=== PATIENT | male | born 1940 | race Caucasian/White ===

== ENCOUNTER 2020-07-17 10:47 | Inpatient (IN) | payer OTHER ==
[~2020-07-17] VITALS: Ht 170.2 cm; Wt 104.0 kg
[2020-07-17 11:13] LABS: BASOPHILS % (AUTO) 0.3 % (0.0-5.0); EOSINOPHILS % (AUTO) 0.1 % (0.0-8.0); LYMPHOCYTES % (AUTO) 2.9 % (21.0-51.0); MEAN CORPUSCULAR VOLUME 90.9 fL (79-99); MONOCYTES % (AUTO) 12.2 % (3.0-13.0); NEUTROPHILS % (AUTO) 82.2 % (40.0-77.0); PLATELET COUNT (AUTO) 181 K/uL (130-400); RED BLOOD CELL COUNT(AUTO) 4.62 MIL/uL (4.50-6.20); RED CELL DISTRIBUTION WIDTH 12.8 % (11.0-15.5)
[2020-07-17 11:34] LABS: INR 1.33 (0.85-1.15); PROTHROMBIN TIME 14.1 SEC (9.6-11.6)
[2020-07-17 11:36] LABS: PARTIAL THROMBOPLASTIN TIME 34.5 SEC (26.3-35.5)
[2020-07-17 12:23] LABS: ALBUMIN 2.4 g/dL (3.5-5.0); BILIRUBIN,TOTAL 3.3 mg/dL (0.2-1.0); CREATININE 4.6 mg/dL (0.5-1.5); POTASSIUM 4.8 mmol/L (3.5-5.1); TOTAL PROTEIN, SERUM 7.1 g/dL (6.0-8.3)
[2020-07-17] MEDS ORDERED: MEROPENEM 1 GM VIAL ONE (14:23)
[2020-07-17] MEDS ORDERED: 0.9%NACL 100ML 100 ML IV ONE (14:24)
[2020-07-17] MEDS ORDERED: METRONIDAZOLE 500MG/100ML BAG 100 ML ONE (14:32)
[2020-07-17] MEDS ORDERED: NALOXONE HCL 0.4 MG/1 ML ML IVP ONE (14:33)
[2020-07-17] MEDS: ZOSYN 3.375GM+NS 50ML 50 ML IV SCH (18:00)
[2020-07-17] MEDS ORDERED: MORPHINE 2 MG SYG IV PRN (18:15)
[2020-07-17] MEDS: 0.9%NACL 1000ML 1,000 ML IV SCH (19:30)
[2020-07-17] MEDS ORDERED: METOPROLOL TARTRATE 25 MG TAB ONE (20:52)
[2020-07-17] MEDS ORDERED: ZOSYN 3.375GM+NS 50ML 50 ML IV ONE (20:52)
[2020-07-17] MEDS ORDERED: FAMOTIDINE 20MG VIAL IV ONE (20:53)
[2020-07-17] MEDS: METOPROLOL TARTRATE 25 MG TAB PO SCH (21:00)
[2020-07-17] MEDS: FAMOTIDINE 20MG VIAL IV SCH (21:00)
[2020-07-17 21:11] LABS: CREATININE 4.6 mg/dL (0.5-1.5); POTASSIUM 4.5 mmol/L (3.5-5.1)
[2020-07-17 22:49] VITALS: BP 114/59
[2020-07-17] MEDS ORDERED: APIX2.5T PO (23:07)
[2020-07-17] MEDS ORDERED: FURO40TA5 PO (23:07)
[2020-07-17] MEDS ORDERED: TIOT18CA3 IH (23:07)
[2020-07-17] MEDS ORDERED: ATOR-2 PO (23:07)
[2020-07-17] MEDS ORDERED: LEVO50CA4 PO (23:07)
[2020-07-17] MEDS ORDERED: ALLO100T PO (23:07)
[2020-07-17] MEDS ORDERED: NPH,100V11 SQ ×2 (23:07)
[2020-07-17] MEDS ORDERED: GLIP10TA9 PO (23:07)
[2020-07-17] MEDS ORDERED: TAMS-1 PO (23:07)
[2020-07-18] MEDS: HYDROMORPHONE 0.5 MG SYG (0.5MG/0.5ML) IVP PRN ×3 (02:21→18:09)
[2020-07-18] MEDS: ONDANSETRON 4MG INJ IV PRN (02:21)
[2020-07-18 04:00] VITALS: BP 109/60
[2020-07-18 05:00] LABS: BASOPHILS % (AUTO) 0.3 % (0.0-5.0); EOSINOPHILS % (AUTO) 1.1 % (0.0-8.0); MEAN CORPUSCULAR HEMOGLOBIN 29.7 pg (27.0-33.0); MEAN CORPUSCULAR HGB CONC 32.3 g/dL (32.0-36.0); MONOCYTES % (AUTO) 10.6 % (3.0-13.0); NEUTROPHILS % (AUTO) 83.5 % (40.0-77.0); PLATELET COUNT (AUTO) 194 K/uL (130-400); RED BLOOD CELL COUNT(AUTO) 4.35 MIL/uL (4.50-6.20); WHITE BLOOD COUNT (AUTO) 19.4 K/uL (4.8-10.8)
[2020-07-18] MEDS: ZOSYN 3.375GM+NS 50ML 50 ML IV SCH ×2 (05:40→18:09)
[2020-07-18] MEDS: 0.9%NACL 1000ML 1,000 ML IV SCH ×2 (05:40→18:11)
[2020-07-18] MEDS: INSULIN HUMULIN R 100 UNIT/ML 3ML SQ SCH ×4 (05:57→18:00)
[2020-07-18 07:57] VITALS: BP 109/58
[2020-07-18] MEDS: METOPROLOL TARTRATE 25 MG TAB PO SCH ×3 (08:19→21:51)
[2020-07-18 12:16] VITALS: BP 97/78
[2020-07-18 17:55] VITALS: BP 133/62
[2020-07-18 20:00] VITALS: BP 156/72
[2020-07-18] MEDS: FAMOTIDINE 20MG VIAL IV SCH (21:50)
[2020-07-19] VITALS (7 sets, daily range): BP systolic 105–121; BP diastolic 55–72
[2020-07-19] MEDS: INSULIN HUMULIN R 100 UNIT/ML 3ML SQ SCH ×4 (00:32→21:49)
[2020-07-19] MEDS: HYDROMORPHONE 0.5 MG SYG (0.5MG/0.5ML) IVP PRN ×5 (00:33→22:03)
[2020-07-19] MEDS: ACETAMINOPHEN 325 MG TAB PO PRN ×2 (01:07→22:03)
[2020-07-19] MEDS: ZOSYN 3.375GM+NS 50ML 50 ML IV SCH ×3 (04:41→21:50)
[2020-07-19 05:22] LABS: BASOPHILS % (AUTO) 0.3 % (0.0-5.0); EOSINOPHILS % (AUTO) 0.1 % (0.0-8.0); HEMATOCRIT 38.7 % (42-54); LYMPHOCYTES % (AUTO) 3.8 % (21.0-51.0); MEAN CORPUSCULAR HEMOGLOBIN 30.9 pg (27.0-33.0); MEAN CORPUSCULAR HGB CONC 33.9 g/dL (32.0-36.0); MEAN CORPUSCULAR VOLUME 91.3 fL (79-99); MONOCYTES % (AUTO) 13.6 % (3.0-13.0); NEUTROPHILS % (AUTO) 80.3 % (40.0-77.0); PLATELET COUNT (AUTO) 209 K/uL (130-400); RED BLOOD CELL COUNT(AUTO) 4.24 MIL/uL (4.50-6.20); RED CELL DISTRIBUTION WIDTH 13.3 % (11.0-15.5)
[2020-07-19 05:46] LABS: BILIRUBIN,TOTAL 1.4 mg/dL (0.2-1.0); CREATININE 5.8 mg/dL (0.5-1.5); POTASSIUM 4.9 mmol/L (3.5-5.1); TOTAL PROTEIN, SERUM 7.1 g/dL (6.0-8.3)
[2020-07-19] MEDS: 0.9%NACL 1000ML 1,000 ML IV SCH ×2 (08:19→21:50)
[2020-07-19] MEDS: METOPROLOL TARTRATE 25 MG TAB PO SCH ×2 (09:52→22:02)
[2020-07-19] MEDS: ONDANSETRON 4MG INJ IV PRN ×2 (12:31→17:39)
[2020-07-19] MEDS: FAMOTIDINE 20MG VIAL IV SCH (21:50)
[2020-07-20] VITALS (12 sets, daily range): BP systolic 80–120; BP diastolic 44–66
[2020-07-20 03:09] LABS: HEPATITIS B CORE IGM Negative (Negative); HEPATITIS Bs ANTIGEN SCREEN P Negative (Negative)
[2020-07-20 08:02] LABS: BASOPHILS % (AUTO) 0.4 % (0.0-5.0); EOSINOPHILS % (AUTO) 0.3 % (0.0-8.0); LYMPHOCYTES % (AUTO) 3.4 % (21.0-51.0); MEAN CORPUSCULAR HEMOGLOBIN 30.3 pg (27.0-33.0); MEAN CORPUSCULAR HGB CONC 32.8 g/dL (32.0-36.0); MEAN CORPUSCULAR VOLUME 92.2 fL (79-99); MONOCYTES % (AUTO) 13.9 % (3.0-13.0); NEUTROPHILS % (AUTO) 77.2 % (40.0-77.0); PLATELET COUNT (AUTO) 242 K/uL (130-400); RED BLOOD CELL COUNT(AUTO) 4.23 MIL/uL (4.50-6.20); RED CELL DISTRIBUTION WIDTH 13.7 % (11.0-15.5); WHITE BLOOD COUNT (AUTO) 19.2 K/uL (4.8-10.8)
[2020-07-20 08:19] LABS: ALBUMIN 1.8 g/dL (3.5-5.0); BILIRUBIN,TOTAL 1.2 mg/dL (0.2-1.0); CREATININE 5.4 mg/dL (0.5-1.5); POTASSIUM 4.6 mmol/L (3.5-5.1); TOTAL PROTEIN, SERUM 6.8 g/dL (6.0-8.3)
[2020-07-20] MEDS: 0.9%NACL 1000ML 1,000 ML IV SCH (09:23)
[2020-07-20] MEDS: ZOSYN 3.375GM+NS 50ML 50 ML IV SCH ×2 (09:23→22:00)
[2020-07-20] MEDS: HYDROMORPHONE 0.5 MG SYG (0.5MG/0.5ML) IVP PRN ×2 (09:26→14:26)
[2020-07-20] MEDS: METOPROLOL TARTRATE 25 MG TAB PO SCH ×2 (09:27→21:00)
[2020-07-20 10:43] LABS: INR 1.16 (0.85-1.15); PROTHROMBIN TIME 12.5 SEC (9.6-11.6)
[2020-07-20 10:44] LABS: PARTIAL THROMBOPLASTIN TIME 33.7 SEC (26.3-35.5)
[2020-07-20] MEDS: INSULIN HUMULIN R 100 UNIT/ML 3ML SQ SCH ×3 (12:00→18:00)
[2020-07-20] MEDS ORDERED: REGADENOSON 0.4 MG/5 ML PF SYG IVP SCH (16:00)
[2020-07-20] MEDS ORDERED: HYDROMORPHONE 1 MG INJ IVP PRN (16:15)
[2020-07-20] MEDS ORDERED: NALOXONE HCL 0.4 MG/1 ML ML ONE (18:29)
[2020-07-20] MEDS ORDERED: DILTIAZEM 50MG VIAL IV ONE (18:33)
[2020-07-20 18:43] LABS: ABG BASE EXCESS -11.5 mmol/L (-2.0-3.0); ABG HCO3 17.7 mmol/L (21.0-28.0); ABG OXYGEN SATURATION 98.4 % (95.0-99.0); ABG PCO2 53 mmHg (35-48)
[2020-07-20] MEDS ORDERED: PROPOFOL 1000 MG/100 ML 0 ML IV ONE (19:02)
[2020-07-20] MEDS ORDERED: MIDAZOLAM HCL 1 MG/ML 2ML VIAL ONE (19:06)
[2020-07-20] MEDS ORDERED: FENTANYL CITRATE PF 0.05 MG/ML 1,000 MCG in 0.9%NACL 100ML 100 ML IVPB SCH (19:15)
[2020-07-20] MEDS ORDERED: MIDAZOLAM HCL 1 MG/ML 2ML VIAL IVP ONE (19:15)
[2020-07-20] MEDS ORDERED: NOREPINEPHRIN 4MG/NS 250ML 250 ML IV SCH ×2 (19:15→21:15)
[2020-07-20] MEDS ORDERED: PHENYLEPHRINE HCL 100 MG in 0.9% NACL 250ML 250 ML IV SCH (19:30)
[2020-07-20] MEDS ORDERED: PHENYLEPHRINE HCL 10/NS 250ML IV PRN ×2 (20:15)
[2020-07-20] MEDS ORDERED: MIDAZOLAM 100MG-0.9% NS 100ML 50 ML IV PRN (20:15)
[2020-07-20] MEDS ORDERED: MIDAZOLAM 100MG-0.9% NS 100ML 100 ML IV SCH (20:45)
[2020-07-20 21:55] LABS: HEMATOCRIT 38.5 % (42-54); MEAN CORPUSCULAR HEMOGLOBIN 30.1 pg (27.0-33.0); MEAN CORPUSCULAR HGB CONC 32.7 g/dL (32.0-36.0); MEAN CORPUSCULAR VOLUME 91.9 fL (79-99); RED BLOOD CELL COUNT(AUTO) 4.19 MIL/uL (4.50-6.20); RED CELL DISTRIBUTION WIDTH 14.1 % (11.0-15.5); WHITE BLOOD COUNT (AUTO) 20.5 K/uL (4.8-10.8)
[2020-07-20] MEDS: CLOTRIMAZOLE 10 MG TROCHE MM SCH (21:58)
[2020-07-20] MEDS: CHLORHEXIDINE GLUCONATE 473 ML MOUTHWASH MM SCH (22:00)
[2020-07-20] MEDS: FAMOTIDINE 20MG VIAL IV SCH (22:00)
[2020-07-20] MEDS: FENTANYL 2500MCG+NS 250ML 250 ML IV SCH (22:05)
[2020-07-20 22:21] LABS: BILIRUBIN,TOTAL 1.2 mg/dL (0.2-1.0); CREATININE 5.4 mg/dL (0.5-1.5); POTASSIUM 5.2 mmol/L (3.5-5.1); TOTAL PROTEIN, SERUM 6.4 g/dL (6.0-8.3)
[2020-07-21] VITALS (84 sets, daily range): BP systolic 71–144; BP diastolic 36–90
[2020-07-21] MEDS: 0.9%NACL 1000ML 1,000 ML IV SCH ×2 (00:19→08:11)
[2020-07-21] MEDS: INSULIN HUMULIN R 100 UNIT/ML 3ML SQ SCH ×5 (00:30→17:15)
[2020-07-21] MEDS: DEXTROSE 50%-WATER 25 GM/50 ML VIAL IV SCH (00:30)
[2020-07-21 04:08] LABS: BASOPHILS % (AUTO) 0.5 % (0.0-5.0); MEAN CORPUSCULAR HEMOGLOBIN 29.5 pg (27.0-33.0); MEAN CORPUSCULAR HGB CONC 32.4 g/dL (32.0-36.0); MEAN CORPUSCULAR VOLUME 91.1 fL (79-99); MONOCYTES % (AUTO) 12.7 % (3.0-13.0); NEUTROPHILS % (AUTO) 77.6 % (40.0-77.0); PLATELET COUNT (AUTO) 286 K/uL (130-400); RED BLOOD CELL COUNT(AUTO) 4.17 MIL/uL (4.50-6.20); RED CELL DISTRIBUTION WIDTH 14.2 % (11.0-15.5); WHITE BLOOD COUNT (AUTO) 23.2 K/uL (4.8-10.8)
[2020-07-21 04:23] LABS: ALBUMIN 1.6 g/dL (3.5-5.0); BILIRUBIN,TOTAL 1.1 mg/dL (0.2-1.0); CREATININE 5.7 mg/dL (0.5-1.5); POTASSIUM 5.1 mmol/L (3.5-5.1); TOTAL PROTEIN, SERUM 6.6 g/dL (6.0-8.3)
[2020-07-21] MEDS: CACL 1GM SYG IVP SCH (05:28)
[2020-07-21] MEDS: CLOTRIMAZOLE 10 MG TROCHE MM SCH ×4 (06:00→17:15)
[2020-07-21] MEDS: ZOSYN 3.375GM+NS 50ML 50 ML IV SCH ×2 (08:10→21:13)
[2020-07-21] MEDS: METOPROLOL TARTRATE 25 MG TAB PO SCH (08:11)
[2020-07-21 09:19] LABS: ABG BASE EXCESS -9.3 mmol/L (-2.0-3.0); ABG HCO3 17.2 mmol/L (21.0-28.0); ABG OXYGEN SATURATION 99.3 % (95.0-99.0); ABG PCO2 40 mmHg (35-48)
[2020-07-21] MEDS: CHLORHEXIDINE GLUCONATE 473 ML MOUTHWASH MM SCH ×2 (10:37→21:14)
[2020-07-21] MEDS ORDERED: DEXMEDETOMIDINE HCL 200 MCG in 0.9%NACL 50ML 50 ML IV SCH (13:49)
[2020-07-21 14:09] LABS: ABG BASE EXCESS -8.7 mmol/L (-2.0-3.0); ABG HCO3 17.9 mmol/L (21.0-28.0); ABG OXYGEN SATURATION 98.1 % (95.0-99.0); ABG PCO2 41 mmHg (35-48)
[2020-07-21] MEDS: VASOPRESSIN 20 UNITS in 0.9%NACL 100ML 100 ML IV SCH ×2 (14:49→20:40)
[2020-07-21] MEDS: ALBUMIN (HUMAN) 25% 50 ML IV SCH ×2 (15:08→15:09)
[2020-07-21 15:29] LABS: HEMATOCRIT 33.8 % (42-54)
[2020-07-21 15:45] LABS: ABG BASE EXCESS -6.7 mmol/L (-2.0-3.0); ABG HCO3 17.7 mmol/L (21.0-28.0); ABG OXYGEN SATURATION 97.4 % (95.0-99.0); ABG PCO2 33 mmHg (35-48)
[2020-07-21] MEDS ORDERED: LACTATED RINGERS 1000ML 1,000 ML IV ONE (15:56)
[2020-07-21 15:59] LABS: HEMOGLOBIN A1C 8.3 % (4.0-6.0)
[2020-07-21] MEDS ORDERED: LACTATED RINGERS 1000ML IV ONE (16:00)
[2020-07-21 16:03] LABS: ALBUMIN 1.8 g/dL (3.5-5.0); CREATININE 6.2 mg/dL (0.5-1.5)
[2020-07-21 16:06] LABS: % IRON SATURATION 13.2 % (30-44)
[2020-07-21] MEDS: HYDROCORTISONE SOD SUCCINATE 100 MG/2 ML VIAL IV SCH ×2 (17:16→23:59)
[2020-07-21] MEDS: DEXMEDETOMIDINE HCL 400 MCG in 0.9%NACL 100ML 100 ML IV SCH (17:27)
[2020-07-21] MEDS ORDERED: PHARMACY COMMUNICATION MISC SCH (19:15)
[2020-07-21] MEDS ORDERED: NOREPINEPHRINE BITARTRATE 32 MG in 0.9% NACL 250ML 250 ML IV PRN (19:30)
[2020-07-21] MEDS ORDERED: LIDOCAINE HCL-MPF 1% 2ML VIAL IJ PRN (19:45)
[2020-07-21] MEDS ORDERED: 0.9%NACL 1000ML IV PRN (19:45)
[2020-07-21] MEDS ORDERED: 0.9%NACL 1000ML 1,000 ML IV PRN (19:45)
[2020-07-21] MEDS: FAMOTIDINE 20MG VIAL IV SCH (21:13)
[2020-07-22] VITALS (79 sets, daily range): BP systolic 76–164; BP diastolic 41–84
[2020-07-22] MEDS: ACETAMINOPHEN 325 MG TAB PO PRN ×2 (00:22→08:52)
[2020-07-22] MEDS: INSULIN HUMULIN R 100 UNIT/ML 3ML SQ SCH ×5 (00:23→18:25)
[2020-07-22] MEDS: DEXTROSE 50%-WATER 25 GM/50 ML VIAL IV SCH (00:30)
[2020-07-22] MEDS: CACL 1GM SYG IVP SCH (00:30)
[2020-07-22] MEDS: FENTANYL 2500MCG+NS 250ML 250 ML IV SCH (02:01)
[2020-07-22 03:43] LABS: BASOPHILS % (AUTO) 0.8 % (0.0-5.0); HEMATOCRIT 35.2 % (42-54); LYMPHOCYTES % (AUTO) 4.3 % (21.0-51.0); MEAN CORPUSCULAR HEMOGLOBIN 30.1 pg (27.0-33.0); MEAN CORPUSCULAR HGB CONC 34.1 g/dL (32.0-36.0); MEAN CORPUSCULAR VOLUME 88.2 fL (79-99); MONOCYTES % (AUTO) 9.9 % (3.0-13.0); NEUTROPHILS % (AUTO) 76.6 % (40.0-77.0); PLATELET COUNT (AUTO) 287 K/uL (130-400); RED BLOOD CELL COUNT(AUTO) 3.99 MIL/uL (4.50-6.20); RED CELL DISTRIBUTION WIDTH 14.3 % (11.0-15.5); WHITE BLOOD COUNT (AUTO) 20.8 K/uL (4.8-10.8)
[2020-07-22 03:59] LABS: CREATININE 5.2 mg/dL (0.5-1.5); MAGNESIUM 2.8 mg/dL (1.80-2.40)
[2020-07-22 04:01] LABS: B-TYPE NATRIURETIC PEPTIDE 403 pg/mL (0-100)
[2020-07-22] MEDS: DEXMEDETOMIDINE HCL 400 MCG in 0.9%NACL 100ML 100 ML IV SCH (04:33)
[2020-07-22] MEDS: VASOPRESSIN 20 UNITS in 0.9%NACL 100ML 100 ML IV SCH ×2 (05:04→16:25)
[2020-07-22 05:07] LABS: ALBUMIN 1.7 g/dL (3.5-5.0)
[2020-07-22 05:29] LABS: BILIRUBIN,DIRECT 0.9 mg/dL (0.0-0.3); BILIRUBIN,TOTAL 1.9 mg/dL (0.2-1.0); TOTAL PROTEIN, SERUM 6.3 g/dL (6.0-8.3)
[2020-07-22] MEDS: HYDROCORTISONE SOD SUCCINATE 100 MG/2 ML VIAL IV SCH ×3 (05:59→18:14)
[2020-07-22] MEDS: CLOTRIMAZOLE 10 MG TROCHE MM SCH ×4 (06:00→17:43)
[2020-07-22] MEDS: ZOSYN 3.375GM+NS 50ML 50 ML IV SCH (08:51)
[2020-07-22] MEDS: CHLORHEXIDINE GLUCONATE 473 ML MOUTHWASH MM SCH ×2 (08:52→20:14)
[2020-07-22 10:23] LABS: ABG BASE EXCESS -2.2 mmol/L (-2.0-3.0); ABG HCO3 20.9 mmol/L (21.0-28.0); ABG OXYGEN SATURATION 98.6 % (95.0-99.0); ABG PCO2 32 mmHg (35-48)
[2020-07-22] MEDS: HEPARIN 5,000 UNIT VIAL IJ PRN (11:31)
[2020-07-22] MEDS ORDERED: VANCOMYCIN PROTOCOL PER PHARMACY IV SCH (12:30)
[2020-07-22] MEDS: VANCOMYCIN 1G 1.25 GM in 0.9% NACL 250ML 250 ML IV SCH (12:43)
[2020-07-22] MEDS: MEROPENEM 1 GM VIAL IVP SCH ×2 (12:43→20:13)
[2020-07-22] MEDS ORDERED: COMPOUND IV REFRIGERATED 1 EACH IVSOLN MISC PRN (12:45)
[2020-07-22] MEDS: FAMOTIDINE 20MG VIAL IV SCH (20:13)
[2020-07-22 21:51] LABS: APPEARANCE,URINE Cloudy (CLEAR); BILIRUBIN,URINE Small (NEGATIVE); COLOR,URINE Dark Yellow (YELLOW); GLUCOSE, URINE (UA) Negative (NEGATIVE); KETONES,URINE Trace mg/dL (NEGATIVE); LEUKOCYTE ESTERASE ,URINE Moderate (NEGATIVE); NITRATE,URINE Negative (NEGATIVE); OCCULT BLOOD,URINE Large (NEGATIVE); PROTEIN,URINE POS 1+ mg/dL (NEGATIVE)
[2020-07-22 21:54] LABS: CREATININE,URINE RANDOM 210 mg/dL (30-135); SODIUM,URINE RANDOM 14 mmol/l (40-220)
[2020-07-22 21:56] LABS: BACTERIA,URINE Few /HPF (None Seen)
[2020-07-22 21:57] LABS: COARSE GRANULAR CASTS,URINE 0-2 /LPF (None Seen); SQUAMOUS EPITHELIAL CELL,UR Few /HPF (0-2)
[2020-07-23] VITALS (36 sets, daily range): BP systolic 97–157; BP diastolic 29–116
[2020-07-23] MEDS: INSULIN HUMULIN R 100 UNIT/ML 3ML SQ SCH ×5 (00:27→23:51)
[2020-07-23] MEDS: HYDROCORTISONE SOD SUCCINATE 100 MG/2 ML VIAL IV SCH ×3 (00:28→11:41)
[2020-07-23] MEDS: CACL 1GM SYG IVP SCH ×2 (00:30→23:45)
[2020-07-23] MEDS: DEXTROSE 50%-WATER 25 GM/50 ML VIAL IV SCH ×2 (00:30→23:45)
[2020-07-23] MEDS: MEROPENEM 1 GM VIAL IVP SCH ×3 (04:43→20:41)
[2020-07-23 05:13] LABS: BASOPHILS % (AUTO) 0.6 % (0.0-5.0); HEMATOCRIT 32.5 % (42-54); LYMPHOCYTES % (AUTO) 3.9 % (21.0-51.0); MEAN CORPUSCULAR HEMOGLOBIN 29.5 pg (27.0-33.0); MEAN CORPUSCULAR HGB CONC 34.2 g/dL (32.0-36.0); MEAN CORPUSCULAR VOLUME 86.4 fL (79-99); MONOCYTES % (AUTO) 7.7 % (3.0-13.0); NEUTROPHILS % (AUTO) 78.1 % (40.0-77.0); PLATELET COUNT (AUTO) 274 K/uL (130-400); RED BLOOD CELL COUNT(AUTO) 3.76 MIL/uL (4.50-6.20); RED CELL DISTRIBUTION WIDTH 13.7 % (11.0-15.5); WHITE BLOOD COUNT (AUTO) 24.2 K/uL (4.8-10.8)
[2020-07-23 05:35] LABS: CREATININE 4.4 mg/dL (0.5-1.5); MAGNESIUM 2.8 mg/dL (1.80-2.40)
[2020-07-23] MEDS: CLOTRIMAZOLE 10 MG TROCHE MM SCH ×5 (06:00→23:43)
[2020-07-23 07:14] LABS: ABG BASE EXCESS 0.1 mmol/L (-2.0-3.0); ABG HCO3 22.3 mmol/L (21.0-28.0); ABG OXYGEN SATURATION 96.6 % (95.0-99.0); ABG PCO2 30 mmHg (35-48)
[2020-07-23] MEDS: CHLORHEXIDINE GLUCONATE 473 ML MOUTHWASH MM SCH ×2 (08:31→20:42)
[2020-07-23 09:14] LABS: HEPATITIS Bs ANTIGEN SCREEN P Negative (Negative)
[2020-07-23] MEDS ORDERED: INSULIN GLARGINE 100 UNITS/ML 10 ML VIAL SQ SCH (11:30)
[2020-07-23] MEDS: LANSOPRAZOLE 15 MG SOLU TAB NG SCH (20:41)
[2020-07-23] MEDS: METOPROLOL TARTRATE 25 MG TAB GT SCH (20:41)
[2020-07-23] MEDS: FAMOTIDINE 20MG VIAL IV SCH (20:41)
[2020-07-24] VITALS (28 sets, daily range): BP systolic 91–155; BP diastolic 40–81
[2020-07-24] MEDS: MEROPENEM 1 GM VIAL IVP SCH ×3 (04:54→20:14)
[2020-07-24] MEDS: INSULIN HUMULIN R 100 UNIT/ML 3ML SQ SCH ×3 (05:20→18:33)
[2020-07-24] MEDS: CLOTRIMAZOLE 10 MG TROCHE MM SCH ×3 (05:21→18:16)
[2020-07-24 06:09] LABS: BASOPHILS % (AUTO) 0.7 % (0.0-5.0); EOSINOPHILS % (AUTO) 0.8 % (0.0-8.0); LYMPHOCYTES % (AUTO) 5.9 % (21.0-51.0); MEAN CORPUSCULAR HEMOGLOBIN 30.2 pg (27.0-33.0); MEAN CORPUSCULAR HGB CONC 34.4 g/dL (32.0-36.0); MEAN CORPUSCULAR VOLUME 87.6 fL (79-99); MONOCYTES % (AUTO) 8.2 % (3.0-13.0); NEUTROPHILS % (AUTO) 74.6 % (40.0-77.0); PLATELET COUNT (AUTO) 226 K/uL (130-400); RED BLOOD CELL COUNT(AUTO) 3.88 MIL/uL (4.50-6.20); RED CELL DISTRIBUTION WIDTH 14.2 % (11.0-15.5); WHITE BLOOD COUNT (AUTO) 17.8 K/uL (4.8-10.8)
[2020-07-24 06:20] LABS: CARBON DIOXIDE 24 mmol/L (21-32); CHLORIDE 103 mmol/L (101-111); CREATININE 4.5 mg/dL (0.5-1.5); GLOMERULAR FILTR. RATE CALC 13 mL/min (>60); GLUCOSE,RANDOM 347 mg/dL (70-105); POTASSIUM 3.4 mmol/L (3.5-5.1); SODIUM SERUM 142 mmol/L (136-145)
[2020-07-24 06:21] LABS: AMMONIA < 3 umol/L (11-32)
[2020-07-24 06:22] LABS: UREA NITROGEN, BLOOD 147 mg/dL (7-18)
[2020-07-24 06:25] LABS: ABG BASE EXCESS 0.8 mmol/L (-2.0-3.0); ABG HCO3 22.7 mmol/L (21.0-28.0); ABG OXYGEN SATURATION 96.7 % (95.0-99.0); ABG PCO2 29 mmHg (35-48)
[2020-07-24] MEDS: METOPROLOL TARTRATE 25 MG TAB GT SCH ×2 (07:27→20:14)
[2020-07-24] MEDS ORDERED: INSULIN GLARGINE 100 UNITS/ML 10 ML VIAL SQ ONE (09:00)
[2020-07-24] MEDS: CHLORHEXIDINE GLUCONATE 473 ML MOUTHWASH MM SCH ×2 (11:06→20:14)
[2020-07-24] MEDS: HEPARIN 5,000 UNIT VIAL IJ PRN (11:40)
[2020-07-24] MEDS: 0.9%NACL 1000ML 1,000 ML IV SCH (11:40)
[2020-07-24] MEDS: LANSOPRAZOLE 15 MG SOLU TAB NG SCH (12:09)
[2020-07-24] MEDS: VANCOMYCIN 1G 1.25 GM in 0.9% NACL 250ML 250 ML IV SCH (13:00)
[2020-07-24] MEDS: FAMOTIDINE 20MG VIAL IV SCH (20:14)
[2020-07-25] VITALS (39 sets, daily range): BP systolic 99–167; BP diastolic 51–104
[2020-07-25] MEDS: CLOTRIMAZOLE 10 MG TROCHE MM SCH ×5 (00:10→23:57)
[2020-07-25] MEDS: INSULIN HUMULIN R 100 UNIT/ML 3ML SQ SCH ×4 (00:10→17:19)
[2020-07-25] MEDS: DEXTROSE 50%-WATER 25 GM/50 ML VIAL IV SCH (00:10)
[2020-07-25] MEDS: CACL 1GM SYG IVP SCH (00:11)
[2020-07-25 03:53] LABS: CREATININE 4.3 mg/dL (0.5-1.5); MAGNESIUM 2.7 mg/dL (1.80-2.40); PHOSPHORUS 7.6 mg/dL (2.5-4.9); POTASSIUM 4.1 mmol/L (3.5-5.1)
[2020-07-25] MEDS: MEROPENEM 1 GM VIAL IVP SCH ×3 (04:38→20:44)
[2020-07-25 07:47] LABS: ABG BASE EXCESS -0.8 mmol/L (-2.0-3.0); ABG HCO3 23.7 mmol/L (21.0-28.0); ABG OXYGEN SATURATION 96.7 % (95.0-99.0); ABG PCO2 39 mmHg (35-48)
[2020-07-25] MEDS: ACETAMINOPHEN 325 MG TAB PO PRN (07:57)
[2020-07-25] MEDS: METOPROLOL TARTRATE 25 MG TAB GT SCH ×2 (07:57→20:44)
[2020-07-25] MEDS: CHLORHEXIDINE GLUCONATE 473 ML MOUTHWASH MM SCH ×2 (08:57→20:45)
[2020-07-25] MEDS: LANSOPRAZOLE 15 MG SOLU TAB NG SCH (09:42)
[2020-07-25] MEDS: INSULIN GLARGINE 100 UNITS/ML 10 ML VIAL SQ SCH (09:43)
[2020-07-25] MEDS: DEXMEDETOMIDINE HCL 400 MCG in 0.9%NACL 100ML 100 ML IV SCH (09:47)
[2020-07-25] MEDS: SENNOSIDES 8.6 MG TABLET PO SCH (10:44)
[2020-07-25] MEDS: FENTANYL 2500MCG+NS 250ML 250 ML IV SCH (16:28)
[2020-07-25] MEDS: FAMOTIDINE 20MG VIAL IV SCH (20:44)
[2020-07-25] MEDS ORDERED: HYDROCORTISONE SOD SUCCINATE 100 MG/2 ML VIAL IV SCH (21:00)
[2020-07-26] VITALS (59 sets, daily range): BP systolic 98–174; BP diastolic 29–110
[2020-07-26] MEDS: DEXTROSE 50%-WATER 25 GM/50 ML VIAL IV SCH (00:13)
[2020-07-26] MEDS: CACL 1GM SYG IVP SCH (00:14)
[2020-07-26] MEDS: MEROPENEM 1 GM VIAL IVP SCH ×3 (04:55→20:47)
[2020-07-26] MEDS: CLOTRIMAZOLE 10 MG TROCHE MM SCH ×3 (05:26→17:10)
[2020-07-26] MEDS: INSULIN HUMULIN R 100 UNIT/ML 3ML SQ SCH ×4 (06:12→17:29)
[2020-07-26 06:41] LABS: BASOPHILS % (AUTO) 0.5 % (0.0-5.0); EOSINOPHILS % (AUTO) 0.8 % (0.0-8.0); HEMATOCRIT 36.2 % (42-54); LYMPHOCYTES % (AUTO) 5.4 % (21.0-51.0); MEAN CORPUSCULAR HEMOGLOBIN 29.7 pg (27.0-33.0); MEAN CORPUSCULAR HGB CONC 32.9 g/dL (32.0-36.0); MEAN CORPUSCULAR VOLUME 90.3 fL (79-99); MONOCYTES % (AUTO) 9.9 % (3.0-13.0); NEUTROPHILS % (AUTO) 78.2 % (40.0-77.0); PLATELET COUNT (AUTO) 201 K/uL (130-400); RED BLOOD CELL COUNT(AUTO) 4.01 MIL/uL (4.50-6.20); RED CELL DISTRIBUTION WIDTH 14.1 % (11.0-15.5)
[2020-07-26 06:55] LABS: CREATININE 3.8 mg/dL (0.5-1.5); POTASSIUM 4.2 mmol/L (3.5-5.1)
[2020-07-26 07:20] LABS: PHOSPHORUS 8.1 mg/dL (2.5-4.9)
[2020-07-26] MEDS: CHLORHEXIDINE GLUCONATE 473 ML MOUTHWASH MM SCH ×2 (07:51→20:48)
[2020-07-26] MEDS: DOCUSATE NA 100MG/10ML UDCUP GT SCH (07:52)
[2020-07-26] MEDS: METOPROLOL TARTRATE 25 MG TAB GT SCH ×2 (07:52→21:46)
[2020-07-26] MEDS: SENNOSIDES 8.6 MG TABLET PO SCH (07:53)
[2020-07-26] MEDS: ACETAMINOPHEN 325 MG TAB PO PRN ×2 (07:53→21:46)
[2020-07-26] MEDS: LANSOPRAZOLE 15 MG SOLU TAB NG SCH (08:00)
[2020-07-26 08:02] LABS: ABG BASE EXCESS -1.1 mmol/L (-2.0-3.0); ABG HCO3 23.8 mmol/L (21.0-28.0); ABG OXYGEN SATURATION 95.9 % (95.0-99.0); ABG PCO2 41 mmHg (35-48)
[2020-07-26] MEDS: INSULIN GLARGINE 100 UNITS/ML 10 ML VIAL SQ SCH (08:19)
[2020-07-26] MEDS ORDERED: ARTIFICAL TEARS SOL 15 ML OD PRN (09:45)
[2020-07-26] MEDS: FLUCONAZOLE 200 MG/NS 100 ML 100 ML IV SCH (12:55)
[2020-07-26] MEDS: VANCOMYCIN 1G 1.25 GM in 0.9% NACL 250ML 250 ML IV SCH (13:41)
[2020-07-26] MEDS ORDERED: DILTIAZEM 25MG INJ IVP SCH (15:30)
[2020-07-26] MEDS ORDERED: NICARDIPINE 25MG INJ 50 MG in 0.9% NACL 250ML 230 ML IV SCH (15:45)
[2020-07-26] MEDS: METOCLOPRAMIDE 10MG/10ML UDCUP PO SCH (16:36)
[2020-07-26] MEDS ORDERED: DILTIAZEM 125MG+100 ML NS 125 ML IV SCH (19:45)
[2020-07-26] MEDS ORDERED: PHARMACY COMMUNICATION MISC SCH (20:15)
[2020-07-26] MEDS: FAMOTIDINE 20MG VIAL IV SCH (20:47)
[2020-07-26] MEDS ORDERED: INSULIN GLARGINE 100 UNITS/ML 10 ML VIAL SQ SCH ×2 (21:00)
[2020-07-27] VITALS (48 sets, daily range): BP systolic 88–144; BP diastolic 41–81
[2020-07-27] MEDS: INSULIN HUMULIN R 100 UNIT/ML 3ML SQ SCH ×7 (00:20→23:59)
[2020-07-27] MEDS: DEXTROSE 50%-WATER 25 GM/50 ML VIAL IV SCH (00:30)
[2020-07-27] MEDS: CACL 1GM SYG IVP SCH (00:30)
[2020-07-27] MEDS: CLOTRIMAZOLE 10 MG TROCHE MM SCH ×4 (00:31→17:24)
[2020-07-27] MEDS: MEROPENEM 1 GM VIAL IVP SCH ×3 (04:18→20:19)
[2020-07-27 06:41] LABS: ABG BASE EXCESS -0.1 mmol/L (-2.0-3.0); ABG HCO3 21.7 mmol/L (21.0-28.0); ABG OXYGEN SATURATION 96.6 % (95.0-99.0); ABG PCO2 28 mmHg (35-48)
[2020-07-27] MEDS: LANSOPRAZOLE 15 MG SOLU TAB NG SCH (08:38)
[2020-07-27] MEDS: METOPROLOL TARTRATE 25 MG TAB GT SCH ×2 (08:38→22:04)
[2020-07-27] MEDS: SENNOSIDES 8.6 MG TABLET PO SCH (08:38)
[2020-07-27] MEDS: DOCUSATE NA 100MG/10ML UDCUP GT SCH (08:39)
[2020-07-27] MEDS: CHLORHEXIDINE GLUCONATE 473 ML MOUTHWASH MM SCH ×2 (08:39→20:19)
[2020-07-27] MEDS: METOCLOPRAMIDE 10MG/10ML UDCUP PO SCH ×3 (08:40→17:13)
[2020-07-27] MEDS: INSULIN GLARGINE 100 UNITS/ML 10 ML VIAL SQ SCH ×2 (08:43→20:26)
[2020-07-27] MEDS ORDERED: FUROSEMIDE 40MG VIAL IV SCH (09:00)
[2020-07-27 09:42] LABS: CREATININE 3.8 mg/dL (0.5-1.5); POTASSIUM 4.6 mmol/L (3.5-5.1)
[2020-07-27] MEDS: FLUCONAZOLE 200 MG/NS 100 ML 100 ML IV SCH (13:03)
[2020-07-27] MEDS: FAMOTIDINE 20MG VIAL IV SCH (20:19)
[2020-07-28] VITALS (47 sets, daily range): BP systolic 59–129; BP diastolic 40–77
[2020-07-28] MEDS: DEXTROSE 50%-WATER 25 GM/50 ML VIAL IV SCH
[2020-07-28] MEDS: CACL 1GM SYG IVP SCH
[2020-07-28] MEDS: MEROPENEM 1 GM VIAL IVP SCH ×3 (04:38→21:15)
[2020-07-28 04:41] LABS: HEMATOCRIT 35.2 % (42-54); MEAN CORPUSCULAR HEMOGLOBIN 30.1 pg (27.0-33.0); MEAN CORPUSCULAR VOLUME 91.4 fL (79-99); PLATELET COUNT (AUTO) 250 K/uL (130-400); RED BLOOD CELL COUNT(AUTO) 3.85 MIL/uL (4.50-6.20); RED CELL DISTRIBUTION WIDTH 14.6 % (11.0-15.5); WHITE BLOOD COUNT (AUTO) 20.4 K/uL (4.8-10.8)
[2020-07-28 05:04] LABS: PHOSPHORUS 7.9 mg/dL (2.5-4.9); POTASSIUM 3.8 mmol/L (3.5-5.1)
[2020-07-28 05:14] LABS: BAND NEUTROPHILS % (MANUAL) 5 % (0-2); LYMPHOCYTES % (MANUAL) 5 % (22-44); MAN.DIFF COMMENT-IMPRESSION MANUAL DIFFERENTIAL; MONOCYTES % (MANUAL) 8 % (2-9); REACTIVE LYMPHOCYTES 1 % (0-0); SEGMENTED NEUTROPHILS % 81 % (40-70)
[2020-07-28] MEDS: INSULIN HUMULIN R 100 UNIT/ML 3ML SQ SCH ×6 (06:32→17:13)
[2020-07-28] MEDS: CLOTRIMAZOLE 10 MG TROCHE MM SCH ×4 (06:33→16:25)
[2020-07-28] MEDS: INSULIN GLARGINE 100 UNITS/ML 10 ML VIAL SQ SCH ×2 (07:03→21:36)
[2020-07-28 07:23] LABS: ABG BASE EXCESS -0.5 mmol/L (-2.0-3.0); ABG HCO3 20.5 mmol/L (21.0-28.0); ABG OXYGEN SATURATION 96.5 % (95.0-99.0); ABG PCO2 26 mmHg (35-48)
[2020-07-28] MEDS: METOCLOPRAMIDE 10MG/10ML UDCUP PO SCH ×3 (07:48→16:25)
[2020-07-28] MEDS: POLYETHYLENE GLYCOL 3350 17 GM POWD.PACK GT SCH (08:34)
[2020-07-28] MEDS: DOCUSATE NA 100MG/10ML UDCUP GT SCH (08:34)
[2020-07-28] MEDS: CHLORHEXIDINE GLUCONATE 473 ML MOUTHWASH MM SCH ×2 (08:34→21:16)
[2020-07-28] MEDS: LANSOPRAZOLE 15 MG SOLU TAB NG SCH (08:34)
[2020-07-28] MEDS: SENNOSIDES 8.6 MG TABLET PO SCH (08:34)
[2020-07-28] MEDS: DILTIAZEM 120MG SR CAP PO SCH ×2 (09:00→14:51)
[2020-07-28] MEDS: LACTULOSE 20 GM/30 ML UDCUP PO SCH ×3 (10:16→21:41)
[2020-07-28] MEDS: HEPARIN 5,000 UNIT VIAL SQ SCH ×2 (11:20→21:37)
[2020-07-28] MEDS: FLUCONAZOLE 200 MG/NS 100 ML 100 ML IV SCH (13:08)
[2020-07-28] MEDS: VANCOMYCIN 1G 1.25 GM in 0.9% NACL 250ML 250 ML IV SCH (14:03)
[2020-07-28] MEDS ORDERED: LORAZEPAM 2 MG/ML 1 ML VIAL ONE (16:00)
[2020-07-28] MEDS ORDERED: LORAZEPAM 2 MG/ML 1 ML VIAL IM PRN (16:00)
[2020-07-28] MEDS: DEXMEDETOMIDINE HCL 400 MCG in 0.9%NACL 100ML 100 ML IV SCH (18:06)
[2020-07-28] MEDS: METOPROLOL TARTRATE 25 MG TAB GT SCH (21:00)
[2020-07-28] MEDS ORDERED: NOREPINEPHRIN 4MG/NS 250ML 250 ML IV ONE (21:03)
[2020-07-28] MEDS: FAMOTIDINE 20MG VIAL IV SCH (21:15)
[2020-07-28] MEDS ORDERED: LORAZEPAM 2 MG/ML 1 ML VIAL IVP PRN (22:00)
[2020-07-29] VITALS (53 sets, daily range): BP systolic 87–147; BP diastolic 39–81
[2020-07-29] MEDS: CLOTRIMAZOLE 10 MG TROCHE MM SCH ×4 (00:12→17:03)
[2020-07-29] MEDS: INSULIN HUMULIN R 100 UNIT/ML 3ML SQ SCH ×7 (00:17→17:11)
[2020-07-29] MEDS: DEXTROSE 50%-WATER 25 GM/50 ML VIAL IV SCH (00:21)
[2020-07-29] MEDS: CACL 1GM SYG IVP SCH (00:22)
[2020-07-29] MEDS ORDERED: NOREPINEPHRIN 4MG/NS 250ML 250 ML IV ONE ×2 (02:41→09:17)
[2020-07-29] MEDS: DEXMEDETOMIDINE HCL 400 MCG in 0.9%NACL 100ML 100 ML IV SCH ×4 (02:55→20:34)
[2020-07-29] MEDS: LACTULOSE 20 GM/30 ML UDCUP PO SCH ×4 (04:15→22:06)
[2020-07-29] MEDS: MEROPENEM 1 GM VIAL IVP SCH ×3 (04:15→21:39)
[2020-07-29] MEDS: INSULIN GLARGINE 100 UNITS/ML 10 ML VIAL SQ SCH ×2 (06:21→21:42)
[2020-07-29] MEDS: METOCLOPRAMIDE 10MG/10ML UDCUP PO SCH ×3 (06:29→16:14)
[2020-07-29] MEDS: DOCUSATE NA 100MG/10ML UDCUP GT SCH (08:04)
[2020-07-29] MEDS: LANSOPRAZOLE 15 MG SOLU TAB NG SCH (08:04)
[2020-07-29] MEDS: POLYETHYLENE GLYCOL 3350 17 GM POWD.PACK GT SCH (08:04)
[2020-07-29] MEDS: SENNOSIDES 8.6 MG TABLET PO SCH (08:04)
[2020-07-29] MEDS: VANCOMYCIN 1G 1.25 GM in 0.9% NACL 250ML 250 ML IV SCH (08:07)
[2020-07-29] MEDS: CHLORHEXIDINE GLUCONATE 473 ML MOUTHWASH MM SCH ×2 (08:30→21:41)
[2020-07-29] MEDS: METOPROLOL TARTRATE 25 MG TAB GT SCH (08:41)
[2020-07-29] MEDS: DILTIAZEM 120MG SR CAP PO SCH (08:42)
[2020-07-29] MEDS: HEPARIN 5,000 UNIT VIAL SQ SCH ×2 (10:06→21:43)
[2020-07-29 10:10] LABS: HEMATOCRIT 38.8 % (42-54); MEAN CORPUSCULAR HEMOGLOBIN 29.4 pg (27.0-33.0); MEAN CORPUSCULAR HGB CONC 31.7 g/dL (32.0-36.0); MEAN CORPUSCULAR VOLUME 92.8 fL (79-99); PLATELET COUNT (AUTO) 290 K/uL (130-400); RED BLOOD CELL COUNT(AUTO) 4.18 MIL/uL (4.50-6.20); RED CELL DISTRIBUTION WIDTH 14.3 % (11.0-15.5); WHITE BLOOD COUNT (AUTO) 20.2 K/uL (4.8-10.8)
[2020-07-29 10:26] LABS: ALBUMIN 1.8 g/dL (3.5-5.0); BILIRUBIN,TOTAL 1.4 mg/dL (0.2-1.0); CREATININE 4.6 mg/dL (0.5-1.5); POTASSIUM 5.2 mmol/L (3.5-5.1); TOTAL PROTEIN, SERUM 7.2 g/dL (6.0-8.3)
[2020-07-29 11:11] LABS: EOSINOPHILS % (MANUAL) 2 % (1-6); LYMPHOCYTES % (MANUAL) 4 % (22-44); MAN.DIFF COMMENT-IMPRESSION MANUAL DIFFERENTIAL; MONOCYTES % (MANUAL) 17 % (2-9); PLATELET MORPHOLOGY COMMENT ADEQUATE; SEGMENTED NEUTROPHILS % 77 % (40-70)
[2020-07-29 11:46] LABS: MAGNESIUM 3.1 mg/dL (1.80-2.40); PHOSPHORUS 9.2 mg/dL (2.5-4.9)
[2020-07-29] MEDS: FLUCONAZOLE 200 MG/NS 100 ML 100 ML IV SCH (11:48)
[2020-07-29] MEDS ORDERED: DILTIAZEM 125MG+100 ML NS 125 ML IV PRN (13:30)
[2020-07-29] MEDS ORDERED: DILTIAZEM 25MG INJ IVP SCH (13:30)
[2020-07-29] MEDS ORDERED: DILTIAZEM 50MG VIAL IV SCH ×2 (13:30→13:35)
[2020-07-29] MEDS: DILTIAZEM 25MG INJ IVP SCH ×5 (13:31→13:50)
[2020-07-29] MEDS: NOREPINEPHRIN 4MG/NS 250ML 250 ML IV SCH ×2 (15:40→22:34)
[2020-07-29] MEDS ORDERED: AMIODARONE 900MG VIAL 900 MG in DEXTROSE 5%-WATER 500 ML IV SCH (15:45)
[2020-07-29] MEDS ORDERED: AMIODARONE 900MG VIAL 150 MG in DEXTROSE 5%-WATER 100 ML IV SCH (15:50)
[2020-07-29] MEDS: FAMOTIDINE 20MG VIAL IV SCH (21:40)
[2020-07-29] MEDS: AMIODARONE 200 MG TABLET PO SCH (21:40)
[2020-07-29] MEDS: BALSAM PERU/CASTOR OIL 60 GM TUBE TP SCH (21:41)
[2020-07-29] MEDS ORDERED: DEXMEDETOMIDINE HCL 200 MCG/2 ML VIAL IV ONE (23:52)
[2020-07-29] MEDS ORDERED: 0.9%NACL 100ML 100 ML IV ONE (23:53)
[2020-07-30] VITALS (40 sets, daily range): BP systolic 94–153; BP diastolic 50–111
[2020-07-30] MEDS: DEXTROSE 50%-WATER 25 GM/50 ML VIAL IV SCH (00:01)
[2020-07-30] MEDS: CLOTRIMAZOLE 10 MG TROCHE MM SCH ×3 (00:18→12:00)
[2020-07-30] MEDS: INSULIN HUMULIN R 100 UNIT/ML 3ML SQ SCH ×7 (00:24→17:18)
[2020-07-30 04:12] LABS: BASOPHILS % (AUTO) 0.5 % (0.0-5.0); EOSINOPHILS % (AUTO) 0.8 % (0.0-8.0); HEMATOCRIT 35.9 % (42-54); LYMPHOCYTES % (AUTO) 8.5 % (21.0-51.0); MEAN CORPUSCULAR HEMOGLOBIN 29.8 pg (27.0-33.0); MEAN CORPUSCULAR HGB CONC 32.3 g/dL (32.0-36.0); MEAN CORPUSCULAR VOLUME 92.3 fL (79-99); MONOCYTES % (AUTO) 15.8 % (3.0-13.0); NEUTROPHILS % (AUTO) 73.3 % (40.0-77.0); PLATELET COUNT (AUTO) 269 K/uL (130-400); RED BLOOD CELL COUNT(AUTO) 3.89 MIL/uL (4.50-6.20); RED CELL DISTRIBUTION WIDTH 14.4 % (11.0-15.5); WHITE BLOOD COUNT (AUTO) 16.5 K/uL (4.8-10.8)
[2020-07-30] MEDS: MEROPENEM 1 GM VIAL IVP SCH ×2 (04:25→12:50)
[2020-07-30] MEDS: LACTULOSE 20 GM/30 ML UDCUP PO SCH ×3 (04:26→17:11)
[2020-07-30 04:32] LABS: CREATININE 4.3 mg/dL (0.5-1.5); PHOSPHORUS 8.7 mg/dL (2.5-4.9); POTASSIUM 4.8 mmol/L (3.5-5.1)
[2020-07-30] MEDS ORDERED: PHARMACY COMMUNICATION MISC SCH (06:15)
[2020-07-30] MEDS: INSULIN GLARGINE 100 UNITS/ML 10 ML VIAL SQ SCH (06:23)
[2020-07-30] MEDS: METOCLOPRAMIDE 10MG/10ML UDCUP PO SCH ×3 (06:26→17:11)
[2020-07-30] MEDS ORDERED: FUROSEMIDE 40MG VIAL IV SCH (08:45)
[2020-07-30] MEDS: VANCOMYCIN 1G 1.25 GM in 0.9% NACL 250ML 250 ML IV SCH (09:49)
[2020-07-30] MEDS: CHLORHEXIDINE GLUCONATE 473 ML MOUTHWASH MM SCH (09:49)
[2020-07-30] MEDS: LANSOPRAZOLE 15 MG SOLU TAB NG SCH (09:49)
[2020-07-30] MEDS: DOCUSATE NA 100MG/10ML UDCUP GT SCH (09:49)
[2020-07-30] MEDS: POLYETHYLENE GLYCOL 3350 17 GM POWD.PACK GT SCH (09:49)
[2020-07-30] MEDS: SENNOSIDES 8.6 MG TABLET PO SCH (09:49)
[2020-07-30] MEDS: AMIODARONE 200 MG TABLET PO SCH (09:49)
[2020-07-30] MEDS: BALSAM PERU/CASTOR OIL 60 GM TUBE TP SCH ×2 (09:50→12:50)
[2020-07-30] MEDS: HEPARIN 5,000 UNIT VIAL SQ SCH (09:50)
[2020-07-30 10:04] LABS: ABG BASE EXCESS -2.1 mmol/L (-2.0-3.0); ABG HCO3 22.5 mmol/L (21.0-28.0); ABG OXYGEN SATURATION 96.7 % (95.0-99.0); ABG PCO2 38 mmHg (35-48)
[2020-07-30 11:02] LABS: ABG BASE EXCESS -3.9 mmol/L (-2.0-3.0); ABG HCO3 20.9 mmol/L (21.0-28.0); ABG OXYGEN SATURATION 95.3 % (95.0-99.0); ABG PCO2 37 mmHg (35-48)
[2020-07-30] MEDS ORDERED: PHENYLEPHRINE HCL 100 MG in 0.9% NACL 250ML 250 ML IV SCH (12:00)
[2020-07-30] MEDS ORDERED: AMIODARONE 150MG VIAL 150 MG in DEXTROSE 5%-WATER 100 ML IV SCH ×2 (12:00→15:00)
[2020-07-30] MEDS: FLUCONAZOLE 200 MG/NS 100 ML 100 ML IV SCH (12:50)
[2020-07-30] MEDS: AMIODARONE 150MG VIAL 150 MG in DEXTROSE 5%-WATER 100 ML IV SCH ×2 (13:00→15:00)
[2020-07-30] MEDS ORDERED: AMIODARONE 200 MG TABLET PO SCH (15:00)
[2020-07-30 17:44] LABS: ABG BASE EXCESS -0.3 mmol/L (-2.0-3.0); ABG HCO3 23.4 mmol/L (21.0-28.0); ABG OXYGEN SATURATION 94.6 % (95.0-99.0); ABG PCO2 36 mmHg (35-48)
[2020-07-30] MEDS ORDERED: DIGOXIN 250 MCG/ML 2ML AMP ONE (18:04)
[2020-07-30] MEDS ORDERED: DIGOXIN IMMUNE FAB 40 MG VIAL IV SCH (18:15)
[2020-07-30] MEDS ORDERED: ACETAMINOPHEN 650 MG SUPPOSITORY RC PRN (19:45)
[2020-07-30] MEDS ORDERED: ONDANSETRON 4MG TABLET PO PRN (19:45)
[2020-07-30] MEDS ORDERED: LORAZEPAM 2 MG/ML 1 ML VIAL IVP PRN (19:45)
[2020-07-30] MEDS ORDERED: ONDANSETRON 4MG INJ IVP PRN (19:45)
[2020-07-30] MEDS ORDERED: LORAZEPAM 1 MG TABLET PO PRN (19:45)
[2020-07-30] MEDS ORDERED: MORPHINE 20MG/ML SOLN 0.25ML PO PRN ×4 (19:45)
[2020-07-30] MEDS ORDERED: ARTIFICAL TEARS SOL 15 ML OU PRN (19:45)
[2020-07-30] MEDS ORDERED: INSULIN GLARGINE 100 UNITS/ML 10 ML VIAL SQ SCH (21:00)
[2020-07-31] MEDS ORDERED: DIGOXIN IMMUNE FAB 40 MG VIAL IV SCH ×2 (06:00)
== END 2020-07-30 21:30 | disposition expired | DRG 444 ==
LOC: EDH 10:47 → EDHIP 18:26 → 4CH 22:15 → 2CH 07-20 22:25
PROVIDERS: ADMIT Internal Medicine; ATTEND Internal Medicine
PROC: 5A09357 Assistance with Respiratory Ventilation, Less than 24 Consecutive Hours, Continuous Positive Airway Pressure (ICD-10-PCS; 2020-07-19)
PROC: 5A1955Z Respiratory Ventilation, Greater than 96 Consecutive Hours (ICD-10-PCS; 2020-07-20)
PROC: 0BH17EZ Insertion of Endotracheal Airway into Trachea, Via Natural or Artificial Opening (ICD-10-PCS; 2020-07-20)
PROC: 5A1D70Z Performance of Urinary Filtration, Intermittent, Less than 6 Hours Per Day (ICD-10-PCS; principal; 2020-07-21)
PROC: 0F9430Z Drainage of Gallbladder with Drainage Device, Percutaneous Approach (ICD-10-PCS; 2020-07-21)
PROC: 5A1D70Z Performance of Urinary Filtration, Intermittent, Less than 6 Hours Per Day (ICD-10-PCS; 2020-07-22)
PROC: 5A1D70Z Performance of Urinary Filtration, Intermittent, Less than 6 Hours Per Day (ICD-10-PCS; 2020-07-24)
PROC: 5A09357 Assistance with Respiratory Ventilation, Less than 24 Consecutive Hours, Continuous Positive Airway Pressure (ICD-10-PCS; 2020-07-24)
PROC: 5A09357 Assistance with Respiratory Ventilation, Less than 24 Consecutive Hours, Continuous Positive Airway Pressure (ICD-10-PCS; 2020-07-26)
PROC: 5A1D70Z Performance of Urinary Filtration, Intermittent, Less than 6 Hours Per Day (ICD-10-PCS; 2020-07-28)
PROC: 5A1D70Z Performance of Urinary Filtration, Intermittent, Less than 6 Hours Per Day (ICD-10-PCS; 2020-07-30)
DX: K80.12 Calculus of gallbladder with acute and chronic cholecystitis without obstruction (principal); R65.21 Severe sepsis with septic shock; J96.01 Acute respiratory failure with hypoxia; J96.02 Acute respiratory failure with hypercapnia; J18.9 Pneumonia, unspecified organism; A41.9 Sepsis, unspecified organism; N17.0 Acute kidney failure with tubular necrosis; N18.6 End stage renal disease; N17.9 Acute kidney failure, unspecified; E87.1 Hypo-osmolality and hyponatremia; G93.40 Encephalopathy, unspecified; J44.0 Chronic obstructive pulmonary disease with (acute) lower respiratory infection; I48.21 Permanent atrial fibrillation; J98.11 Atelectasis; L97.429 Non-pressure chronic ulcer of left heel and midfoot with unspecified severity; I12.0 Hypertensive chronic kidney disease with stage 5 chronic kidney disease or end stage renal disease; K80.00 Calculus of gallbladder with acute cholecystitis without obstruction; E66.01 Morbid (severe) obesity due to excess calories; G47.33 Obstructive sleep apnea (adult) (pediatric); R53.81 Other malaise; N20.0 Calculus of kidney; E87.5 Hyperkalemia; D72.810 Lymphocytopenia; K57.90 Diverticulosis of intestine, part unspecified, without perforation or abscess without bleeding; D64.9 Anemia, unspecified; E03.9 Hypothyroidism, unspecified; E11.22 Type 2 diabetes mellitus with diabetic chronic kidney disease; I25.10 Atherosclerotic heart disease of native coronary artery without angina pectoris; I35.0 Nonrheumatic aortic (valve) stenosis; E87.70 Fluid overload, unspecified; E11.621 Type 2 diabetes mellitus with foot ulcer; E78.5 Hyperlipidemia, unspecified; K82.8 Other specified diseases of gallbladder; L89.152 Pressure ulcer of sacral region, stage 2; L98.419 Non-pressure chronic ulcer of buttock with unspecified severity; M47.815 Spondylosis without myelopathy or radiculopathy, thoracolumbar region; N28.1 Cyst of kidney, acquired; Z79.01 Long term (current) use of anticoagulants; Z68.35 Body mass index [BMI] 35.0-35.9, adult; Z74.01 Bed confinement status; Z99.2 Dependence on renal dialysis; I25.2 Old myocardial infarction; Z79.4 Long term (current) use of insulin; Z79.899 Other long term (current) drug therapy; Z90.49 Acquired absence of other specified parts of digestive tract; Z87.891 Personal history of nicotine dependence; Z83.3 Family history of diabetes mellitus; Z20.822 Contact with and (suspected) exposure to COVID-19
CPT/HCPCS: 10030; 31500; 36415; 36600; 70450; 71045; 74018; 74176; 74181; 76705; 76942; 78452; 80048; 80053; 80061; 80074; 80076; 80202; 81001; 82040; 82140; 82435; 82550; 82565; 82570; 82728; 82803; 82947; 82948; 83036; 83540; 83550; 83605; 83690; 83735; 83880; 84100; 84132; 84145; 84295; 84300; 84484; 84520; 85014; 85018; 85025; 85027; 85610; 85730; 86701; 86704; 86706; 87040; 87071; 87077; 87088; 87186; 87205; 87340; 87390; 87426; 87520; 90935; 93005; 93017; 93306; 93356; 94002; 94003; 94660; 96374; 99152; A9500; C1729; G0378; J0282; J1160; J1162; J1170; J1450; J1644; J1720; J1815; J1940; J2060; J2185; J2250; J2310; J2370; J2405; J2543; J2704; J2785; J3010; J3370; J3490; J7030; J7050; J7060; J7070; J7120; P9047; U0003